=== PATIENT | male | born 1985 | race Caucasian/White ===

== ENCOUNTER 2022-02-15 08:30 | Emergency (ER) | payer OTHER, SELFPAY ==
--- NOTE | ~2022-02-15 | XR_ITS ---
EXAMINATION: XR SHOULDER RIGHT XR FOREARM RIGHT XR HAND RIGHT CLINICAL INFORMATION: Pain of right shoulder, forearm and hand. COMPARISON: None TECHNIQUE: Right shoulder, 4 views Right forearm, 2 views Right hand, 3 views FINDINGS: Right shoulder: Bones have normal alignment. The joint spaces are normal. No arthritic deformity, fracture or subluxation. The soft tissues are unremarkable. The visualized right lung is normal. Right forearm: The elbow and wrist joint spaces are normal. Radius and ulna are intact. No elbow joint effusion. Soft tissues of the forearm are unremarkable. Right hand: Incidentally noted is a subchondral cyst of the distal ulna at the ulnolunate joint. Carpal bones, metacarpals and phalanges are intact. No fracture, subluxation or focal soft tissue swelling. The joint spaces are maintained. No erosions or periostitis. XR/XR shoulder RT min 2V IMPRESSION: * Normal right shoulder. * No acute abnormalities in the right forearm, wrist or hand.
--- NOTE | ~2022-02-15 | XR_ITS ---
EXAMINATION: XR SHOULDER RIGHT XR FOREARM RIGHT XR HAND RIGHT CLINICAL INFORMATION: Pain of right shoulder, forearm and hand. COMPARISON: None TECHNIQUE: Right shoulder, 4 views Right forearm, 2 views Right hand, 3 views FINDINGS: Right shoulder: Bones have normal alignment. The joint spaces are normal. No arthritic deformity, fracture or subluxation. The soft tissues are unremarkable. The visualized right lung is normal. Right forearm: The elbow and wrist joint spaces are normal. Radius and ulna are intact. No elbow joint effusion. Soft tissues of the forearm are unremarkable. Right hand: Incidentally noted is a subchondral cyst of the distal ulna at the ulnolunate joint. Carpal bones, metacarpals and phalanges are intact. No fracture, subluxation or focal soft tissue swelling. The joint spaces are maintained. No erosions or periostitis. XR/XR hand RT min 3V IMPRESSION: * Normal right shoulder. * No acute abnormalities in the right forearm, wrist or hand.
--- NOTE | ~2022-02-15 | XR_ITS ---
EXAMINATION: XR SHOULDER RIGHT XR FOREARM RIGHT XR HAND RIGHT CLINICAL INFORMATION: Pain of right shoulder, forearm and hand. COMPARISON: None TECHNIQUE: Right shoulder, 4 views Right forearm, 2 views Right hand, 3 views FINDINGS: Right shoulder: Bones have normal alignment. The joint spaces are normal. No arthritic deformity, fracture or subluxation. The soft tissues are unremarkable. The visualized right lung is normal. Right forearm: The elbow and wrist joint spaces are normal. Radius and ulna are intact. No elbow joint effusion. Soft tissues of the forearm are unremarkable. Right hand: Incidentally noted is a subchondral cyst of the distal ulna at the ulnolunate joint. Carpal bones, metacarpals and phalanges are intact. No fracture, subluxation or focal soft tissue swelling. The joint spaces are maintained. No erosions or periostitis. XR/XR forearm RT 2V IMPRESSION: * Normal right shoulder. * No acute abnormalities in the right forearm, wrist or hand.
[2022-02-15 08:46] VITALS: BP 146/92; PULSE 87; RESP 18; TEMP 36.3; O2SAT 99; BMI 20.9
[2022-02-15] MEDS: Acetaminophen 325 MG TABLET 650 MG PO (08:55)
[2022-02-15 10:02] VITALS: BP 142/87; PULSE 86; RESP 20; TEMP 37.1; O2SAT 98
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
--- NOTE | 2022-02-15 10:27 | PC.NURSE ---
ABRASIONS CLEANED AND DSD PLACED.
[2022-02-15] MEDS: Bacitracin Oint 0.9 GM PACKET 1 APPL TOPICAL (10:35)
== END 2022-02-15 10:43 | disposition home or self-care (01) ==
PROVIDERS: Emergency Provider Emergency Medicine; PCP Internal Medicine
DX: S40.011A Contusion of right shoulder, initial encounter (principal); S50.11XA Contusion of right forearm, initial encounter; S60.221A Contusion of right hand, initial encounter; S61.411A Laceration without foreign body of right hand, initial encounter; S51.811A Laceration without foreign body of right forearm, initial encounter; V43.52XA Car driver injured in collision with other type car in traffic accident, initial encounter; Y93.89 Activity, other specified; Y92.414 Local residential or business street as the place of occurrence of the external cause; Y99.9 Unspecified external cause status
CPT/HCPCS: 73030; 73090; 73130; 99283